=== PATIENT | male | born 1940 | race Caucasian/White ===

== ENCOUNTER → 2016-02-29 | Outpatient (CLI) | payer MEDICARE, OTHER | LOC: GMAJ 11:40 | PROVIDERS: ATTEND Family Medicine | DX: C61 Malignant neoplasm of prostate (principal) ==

== ENCOUNTER → 2016-04-17 | Outpatient (CLI) | payer MEDICARE, OTHER | END | disposition home or self-care (01) | LOC: GMAJ 10:37 | PROVIDERS: ATTEND Family Medicine | DX: C61 Malignant neoplasm of prostate (principal) ==

== ENCOUNTER → 2016-08-22 | Outpatient (CLI) | payer MEDICARE, OTHER | END | disposition home or self-care (01) | LOC: GMAJ 10:34 | PROVIDERS: ATTEND Family Medicine | DX: C61 Malignant neoplasm of prostate (principal) ==

== ENCOUNTER → 2016-12-07 | Outpatient (CLI) | payer MEDICARE, OTHER | END | disposition home or self-care (01) | LOC: GMAJ 10:26 | PROVIDERS: ATTEND Family Medicine | DX: R07.82 Intercostal pain (principal); R07.89 Other chest pain ==

== ENCOUNTER → 2017-01-09 | Outpatient (CLI) | payer MEDICARE, OTHER ==
--- NOTE | 2017-01-09 16:23 | NM ---
EXAM DESCRIPTION: Bone Scan, Whole Body CLINICAL HISTORY: 76-year-old, male, with history of prostate cancer. COMPARISON: Nuclear medicine bone scan dated November 11, 2015. TECHNIQUE: Following intravenous administration of 29 mCi technetium 99 M MDP, whole body scintigraphic imaging was performed. FINDINGS: Skull: Subtle new foci of increased radiotracer activity over the occipital calvarium at midline. This could represent suture line versus osteoblastic metastatic lesion. Spine: Interval increase in number and intensity of osteoblastic metastatic lesions within the thoracic and lumbar spine. Thorax: Interval increase in number and size of osteoblastic metastatic involvement of the ribs bilaterally as well as lower left sternum. Abdomen and pelvis: Interval increase in size of right iliac osteoblastic lesion. Redemonstration of similar-appearing osteoblastic lesion in the left iliac. There is a subtle new focus of increased osteoblastic uptake in the right sacrum. Physiologic radiotracer activity seen within the bilateral kidneys and urinary bladder. Extremities: Increased in intensity of osteoblastic lesion in the proximal left femur with subtle new focus of osteoblastic lesion in the proximal right femur. Redemonstration of increased uptake in the mid and distal right femur. Redemonstration of osteoblastic metastatic involvement of the distal right humerus Soft tissue: Normal distribution of radiopharmaceutical. IMPRESSION: Widespread metastatic disease with increase in number, size and/or intensity in the thoracic and lumbar spine as well as bilateral ribs, sternum, osseous pelvis, and left proximal femur relative to November medicine bone scan of November 11, 2015. Subtle new foci of increased radiotracer activity over the occipital calvarium at midline. This could represent suture line versus osteoblastic metastatic lesion. Osteoblastic metastatic involvement of the mid right femur and distal right humerus is similar in appearance. Electronically signed by: Oh Kimball MD 01/09/2017 4:22 PM [facility]
== END | disposition home or self-care (01) ==
LOC: NM 10:42
PROVIDERS: ATTEND Internal Medicine Hematology & Oncology
DX: C61 Malignant neoplasm of prostate (principal)

== ENCOUNTER 2018-03-10 05:16 | Day surgery (SDC) | payer MEDICARE, OTHER ==
[2018-03-10] MEDS ORDERED: PROPARACAINE 0.5% OPHTH SOL 15 ML BTTL ONE (11:10)
[2018-03-10] MEDS ORDERED: TROP 1%/CYCLOPEN 1%/PHENYL 2% DROPS ONE (11:11)
[2018-03-10] MEDS ORDERED: MIDAZOLAM INJ 2 MG/2 ML VIAL ONE (12:52)
[2018-03-10] MEDS ORDERED: LIDOCAINE 1% MPF 5 ML VIAL INJ ONE (13:03)
[2018-03-10] MEDS ORDERED: DEXAMETHASONE 0.1% OPHTH SOL 1 DROP RIGHT_EYE ONE ×2 (13:03→13:21)
[2018-03-10] MEDS ORDERED: TOBRAMYCIN SULF 0.3 % OPHT SOL 1 DROP RIGHT_EYE ONE ×2 (13:04→13:21)
[2018-03-10] MEDS ORDERED: BRIMONIDINE 0.2% OPHTH DROPS RIGHT_EYE ONE ×2 (13:04→13:21)
== END 2018-03-10 14:18 | disposition home or self-care (01) ==
LOC: AMB 05:16
PROVIDERS: ATTEND Ophthalmology
DX: H25.11 Age-related nuclear cataract, right eye (principal); I10 Essential (primary) hypertension; I25.10 Atherosclerotic heart disease of native coronary artery without angina pectoris; Z85.46 Personal history of malignant neoplasm of prostate; Z90.79 Acquired absence of other genital organ(s); Z79.82 Long term (current) use of aspirin; Z79.02 Long term (current) use of antithrombotics/antiplatelets; Z79.899 Other long term (current) drug therapy
CPT/HCPCS: 00142; 66984; J2250

== ENCOUNTER 2018-04-19 06:51 | Emergency (ER) | payer MEDICARE, OTHER ==
[2018-04-19] MEDS ORDERED: KETOROLAC TROMETHAMINE INJ 30 MG/ML VIAL IM ONE (07:49)
[2018-04-19] MEDS ORDERED: predniSONE 20 MG TAB PO ONE (07:49)
[2018-04-19] MEDS ORDERED: GABAPENTIN 300 MG CAP PO ONE (07:50)
--- NOTE | 2018-04-19 07:55 | ED.PDOC ---
History of Present Illness - General Chief Complaint: General Stated Complaint: Rt shoulder pain radiating down the arm Time Seen by Provider: 04/19/18 07:05 Source: patient Exam Limitations: no limitations - History of Present Illness Initial Comments: The patient is a very nice 78-year-old male presenting to the emergency room secondary to unremitting pain in his right shoulder also giving some neuropathic changes to the right upper extremity. No weakness but he does have some sensory decrease to the medial aspect of the right upper extremity. This has been progressive over the last couple of weeks. 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 He is seeing oncology and is planning on starting a new form of chemotherapy in a couple of weeks. He is on hydrocodone already but no other pain medications.the shoulder itself is not really tender to palpation. Movement does not make the pain any worse or better. Timing/Duration: 1 week Severity: moderate Improving Factors: nothing Worsening Factors: nothing Associated Symptoms: denies symptoms Allergies/Adverse Reactions: Allergies NO KNOWN ALLERGY Allergy (Verified 04/19/18 07:19) Home Medications: Ambulatory Orders Aspirin [Jm Low Dose] 81 mg PO DAILY 04/19/18 Clopidogrel Bisulfate [Plavix] 75 mg PO DAILY 04/19/18 Gabapentin 100 mg PO Q8HR #60 cap 04/19/18 HYDROcodone 5MG/APAP 325MG [[place] 5/325] 1 ea PO QID PRN 04/19/18 Lisinopril 10 mg PO DAILY 04/19/18 Metoprolol Succinate [Metoprolol Succinate ER] 50 mg PO DAILY 04/19/18 Nitroglycerin Patch 0.4 mg/Hr [Nitro-Dur PATCH 0.4 mg/hour] 0.4 mg TD DAILY 04/19/18 predniSONE [Prednisone] 40 mg PO DAILY #10 tab 04/19/18 Review of Systems - Review of Systems Constitutional: States: no symptoms reported EENTM: States: no symptoms reported Respiratory: States: no symptoms reported Cardiology: States: no symptoms reported Gastrointestinal/Abdominal: States: no symptoms reported Genitourinary: States: no symptoms reported Musculoskeletal: States: back pain, joint pain Skin: States: no symptoms reported Neurological: States: see HPI Endocrine: States: no symptoms reported All other Systems: No Change from Baseline Past Medical History (General) - Patient Medical History Hx Stroke: No Hx Cardiac Disorders: Yes Hx Congestive Heart Failure: No Hx Hypertension: Yes Hx Diabetes: No Hx Gastroesophageal Reflux: No - diverticulitis Hx Cancer: Yes - Skin, prostate and bone Surgical History: tonsillectomy, other - Vaccination History Hx Tetanus, Diphtheria Vaccination: - unknown Hx Influenza Vaccination: Yes Hx Pneumococcal Vaccination: Yes Immunizations Up to Date: Yes - Social History Hx Tobacco Use: No Hx Alcohol Use: No Hx Substance Use: No Hx Depression: No Family Medical History - Family History Father Living Status: Hx Cardiac Disease: Yes Hx Family Diabetes: Yes Physical Exam - Physical Exam General Appearance: Alert, Comfortable, No apparent distress Eye Exam: bilateral normal Ears, Nose, Throat: hearing grossly normal, normal ENT inspection Neck: full range of motion, supple Respiratory: no respiratory distress, no accessory muscle use Cardiovascular/Chest: normal peripheral pulses, regular rate, rhythm, no edema Peripheral Pulses: radial,right: 2+, radial,left: 2+ Gastrointestinal/Abdominal: soft Rectal Exam: deferred Back Exam: other - he does have some mild tenderness to palpation to the right side of the thoracic spine adjacent to T3-T7 No palpable mass. No step-off. No pain to palpation of the scapula or clavicle. No pain to palpation of the right upper extremity. 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 Skin Exam: normal color Comments: Vital Signs - 24 hr 04/19/18 07:12 Temperature 97.7 F Pulse Rate [ 82 Left Radial] Respiratory 18 Rate Blood Pressure 145/110 [Left Arm] O2 Sat by Pulse 95 Oximetry Progress - Progress Progress: 04/19/18 07:56 the patient is an 78-year-old male presenting to the emergency room secondary to pain to his right upper extremity with some decreased sensation that is most consistent with nerve impingement. Whether this is occurring at the shoulder or at the level of the cervical spine is not quite certain. He does have known metastases in both regions. He is already taking hydrocodone. He is given a dose of Toradol, prednisone and Neurontin here today. He is going to be placed on Neurontin 100 mg 3 times a day and he does need to be careful for drowsiness with this medication. He is also going to be placed on prednisone 40 mg daily for the next 5 days only. He needs to keep follow-up with his oncologist. Ultimately the pain medications will likely need to be ramped up but we do need to start somewhere. ER warnings were given. Keep follow-up with primary care doctor as well. Departure - Departure Clinical Impression: Neuropathic pain, Prostate cancer metastatic to bone Disposition: Discharge to Home or Self Care Condition: Fair Departure Forms: ED Discharge - Pt. Copy, Patient Portal Self Enrollment Instructions: Neuropathic Pain Diet: regular diet Activity: increase activity as tolerated Referrals: César Chery MD [Primary Care Provider] - 1-2 Weeks Prescriptions: Gabapentin 100 mg PO Q8HR #60 cap predniSONE [Prednisone] 40 mg PO DAILY #10 tab Home Medications: Ambulatory Orders Aspirin [Jm Low Dose] 81 mg PO DAILY 04/19/18 Clopidogrel Bisulfate [Plavix] 75 mg PO DAILY 04/19/18 Gabapentin 100 mg PO Q8HR #60 cap 04/19/18 HYDROcodone 5MG/APAP 325MG [[place] 5/325] 1 ea PO QID PRN 04/19/18 Lisinopril 10 mg PO DAILY 04/19/18 Metoprolol Succinate [Metoprolol Succinate ER] 50 mg PO DAILY 04/19/18 Nitroglycerin Patch 0.4 mg/Hr [Nitro-Dur PATCH 0.4 mg/hour] 0.4 mg TD DAILY 04/19/18 predniSONE [Prednisone] 40 mg PO DAILY #10 tab 04/19/18 Additional Instructions: the patient is an 78-year-old male presenting to the emergency room secondary to pain to his right upper extremity with some decreased sensation that is most consistent with nerve impingement. Whether this is occurring at the shoulder or at the level of the cervical spine is not quite certain. He does have known metastases in both regions. He is already taking hydrocodone. He is given a dose of Toradol, prednisone and Neurontin here today. He is going to be placed on Neurontin 100 mg 3 times a day and he does need to be careful for drowsiness with this medication. He is also going to be placed on prednisone 40 mg daily for the next 5 days only. He needs to keep follow-up with his oncologist. Ultimately the pain medications will likely need to be ramped up but we do need to start somewhere. ER warnings were given. Keep follow-up with primary care doctor as well.
[2018-04-19 08:41] VITALS: BP 158/77; TEMP 97.6; O2SAT 96
== END 2018-04-19 08:41 | disposition home or self-care (01) ==
LOC: ER 06:51
DX: M25.511 Pain in right shoulder (principal); C61 Malignant neoplasm of prostate; C79.51 Secondary malignant neoplasm of bone; I51.9 Heart disease, unspecified; I10 Essential (primary) hypertension; Z79.899 Other long term (current) drug therapy; Z85.828 Personal history of other malignant neoplasm of skin
CPT/HCPCS: J1885; J7512

== ENCOUNTER 2018-04-24 20:06 | Emergency (ER) | payer MEDICARE, OTHER ==
[2018-04-24 20:25] VITALS: TEMP 98.1
[2018-04-24] MEDS ORDERED: KETOROLAC TROMETHAMINE INJ 30 MG/ML VIAL IM ONE (20:39)
[2018-04-24] MEDS ORDERED: GABAPENTIN 300 MG CAP PO ONE (20:39)
--- NOTE | 2018-04-24 20:54 | ED.PDOC ---
History of Present Illness - General Chief Complaint: General Stated Complaint: pain related to bone cancer Time Seen by Provider: 04/24/18 20:26 Source: patient Exam Limitations: no limitations - History of Present Illness Initial Comments: the patient is an 78-year-old male presenting to emergency room secondary to recurrent and worsening right shoulder pain related most likely to metastatic disease. He is already on moderately high dose hydrocodone, low-dose gabapentin and he is finishing a course of prednisone. He did respond well last week to a bigger dose of gabapentin and a dose of Toradol. He is going to get another dose of that here today. No new symptoms otherwise. Hydrocodone will dose was increased by his primary care doctor 2 days ago. Timing/Duration: unsure Severity: moderate Improving Factors: nothing Worsening Factors: nothing Associated Symptoms: denies symptoms Allergies/Adverse Reactions: Allergies NO KNOWN ALLERGY Allergy (Verified 04/19/18 07:19) Home Medications: Ambulatory Orders Aspirin [Jm Low Dose] 81 mg PO DAILY 04/19/18 Clopidogrel Bisulfate [Plavix] 75 mg PO DAILY 04/19/18 Gabapentin 100 mg PO Q8HR #60 cap 04/19/18 HYDROcodone 5MG/APAP 325MG [[place] 5/325] 1 ea PO QID PRN 04/19/18 Lisinopril 10 mg PO DAILY 04/19/18 Metoprolol Succinate [Metoprolol Succinate ER] 50 mg PO DAILY 04/19/18 Nitroglycerin Patch 0.4 mg/Hr [Nitro-Dur PATCH 0.4 mg/hour] 0.4 mg TD DAILY 04/19/18 predniSONE [Prednisone] 40 mg PO DAILY #10 tab 04/19/18 Gabapentin [Neurontin] 300 mg PO Q8HR #60 cap 04/24/18 Indomethacin 50 mg PO Q8HR PRN #60 cap 04/24/18 Review of Systems - Review of Systems Constitutional: States: no symptoms reported EENTM: States: no symptoms reported Respiratory: States: no symptoms reported Cardiology: States: no symptoms reported Gastrointestinal/Abdominal: States: no symptoms reported Genitourinary: States: no symptoms reported Musculoskeletal: States: see HPI Skin: States: no symptoms reported Neurological: States: no symptoms reported Endocrine: States: no symptoms reported All other Systems: No Change from Baseline Past Medical History (General) - Patient Medical History Hx Stroke: No Hx Asthma: No Hx of COPD: No Hx Cardiac Disorders: Yes - partial blocakge Hx Congestive Heart Failure: No Hx Hypertension: Yes Hx Diabetes: No Hx Gastroesophageal Reflux: No - diverticulitis Hx Cancer: Yes - Skin, prostate and bone Surgical History: other - Vaccination History Hx Tetanus, Diphtheria Vaccination: - unknown Hx Influenza Vaccination: Yes Hx Pneumococcal Vaccination: Yes - Social History Hx Tobacco Use: No Hx Alcohol Use: No Hx Substance Use: No Hx Depression: No Family Medical History - Family History Father Living Status: Hx Cardiac Disease: Yes Hx Family Diabetes: Yes Physical Exam - Physical Exam General Appearance: Alert, Anxious, No apparent distress Eye Exam: bilateral normal Ears, Nose, Throat: hearing grossly normal, normal pharynx Neck: full range of motion, supple Respiratory: no respiratory distress, no accessory muscle use Cardiovascular/Chest: normal peripheral pulses, no edema, other - regular rate Peripheral Pulses: radial,right: 2+, radial,left: 2+ Gastrointestinal/Abdominal: non tender, soft Rectal Exam: deferred Extremity: normal range of motion, no pedal edema, normal capillary refill, other - the patient has deep pain in his right shoulder. He continues to have a area of decreased sensation to the medial aspect around the elbow. 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 As anticipated his pain medication doses are going to need to be increased. He is going to be written for gabapentin 300 mg 3 times daily. He is also going to be written for a trial of indomethacin. These medications do need to be taken with food to prevent stomach upset. Follow up with primary care doctor early next week. Keep follow-up with oncology. ER warnings were given. He was given a dose of higher dose gabapentin and a dose of Toradol here tonight. Departure - Departure Clinical Impression: Right shoulder pain Qualifiers: Chronicity: acute Qualified Code(s): M25.511 - Pain in right shoulder Disposition: Discharge to Home or Self Care Condition: Fair Departure Forms: ED Discharge - Pt. Copy, Patient Portal Self Enrollment Instructions: Shoulder Impingement (DC) Diet: regular diet Activity: increase activity as tolerated Referrals: César Chery MD [Primary Care Provider] - 1-2 Weeks Prescriptions: Gabapentin [Neurontin] 300 mg PO Q8HR #60 cap Indomethacin 50 mg PO Q8HR PRN #60 cap PRN Reason: Moderate Pain Home Medications: Ambulatory Orders Aspirin [Jm Low Dose] 81 mg PO DAILY 04/19/18 Clopidogrel Bisulfate [Plavix] 75 mg PO DAILY 04/19/18 Gabapentin 100 mg PO Q8HR #60 cap 04/19/18 HYDROcodone 5MG/APAP 325MG [[place] 5/325] 1 ea PO QID PRN 04/19/18 Lisinopril 10 mg PO DAILY 04/19/18 Metoprolol Succinate [Metoprolol Succinate ER] 50 mg PO DAILY 04/19/18 Nitroglycerin Patch 0.4 mg/Hr [Nitro-Dur PATCH 0.4 mg/hour] 0.4 mg TD DAILY 04/19/18 predniSONE [Prednisone] 40 mg PO DAILY #10 tab 04/19/18 Gabapentin [Neurontin] 300 mg PO Q8HR #60 cap 04/24/18 Indomethacin 50 mg PO Q8HR PRN #60 cap 04/24/18 Additional Instructions: the patient's an 78-year-old male presenting with recurrent right shoulder pain. As anticipated his pain medication doses are going to need to be increased. He is going to be written for gabapentin 300 mg 3 times daily. He is also going to be written for a trial of indomethacin. These medications do need to be taken with food to prevent stomach upset. Follow up with primary care doctor early next week. Keep follow-up with oncology. ER warnings were given. He was given a dose of higher dose gabapentin and a dose of Toradol here tonight.
[2018-04-24 21:05] VITALS: BP 157/84; O2SAT 95
== END 2018-04-24 21:05 | disposition home or self-care (01) ==
LOC: ER 20:06
DX: M25.511 Pain in right shoulder (principal); C44.90 Unspecified malignant neoplasm of skin, unspecified; C61 Malignant neoplasm of prostate; C41.9 Malignant neoplasm of bone and articular cartilage, unspecified; I51.9 Heart disease, unspecified; I10 Essential (primary) hypertension; Z79.899 Other long term (current) drug therapy; Z79.891 Long term (current) use of opiate analgesic; Z79.82 Long term (current) use of aspirin

== ENCOUNTER 2018-06-05 00:11 | Emergency (ER) | payer MEDICARE, OTHER ==
[2018-06-05] MEDS ORDERED: ASPIRIN TABLET 325 MG TAB PO ONE (00:35)
[2018-06-05] MEDS ORDERED: SODIUM CHLORIDE 0.9% (FLUSH) 10 ML SYG IV PRN (00:35)
[2018-06-05] MEDS ORDERED: ONDANSETRON INJ 4 MG/2 ML VIAL IV ONE (00:35)
[2018-06-05] MEDS ORDERED: MORPHINE SULFATE INJ 10 MG/ML VIAL IM ONE (00:36)
--- NOTE | 2018-06-05 00:37 | ED.PDOC ---
History of Present Illness - General Chief Complaint: Chest Pain/VA Stated Complaint: CP- pain bilateral arms Time Seen by Provider: 06/05/18 00:32 Source: patient - History of Present Illness Initial Comments: ACUTE ONSET OF CP, ONSET AT 2300 HRS. PRESSURE TYPE, SUBSTERNAL, 6/10 RADIATES TO BOTH SHOULDERS ASSOCIATED WITH SOB AND NAUSEA AND VOMIT. HE TOOK NTG SL X THREE AND THE PAIN WAS NOT IMPROVED. HE ELECTED TO COME TO THE ED. 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 HE ALSO VOICES THAT HE HAS CANCER OF THE PROSTATE WITH BONE METASTASIS AND IS UNDER THE CARE WITH A [facility] ONCOLOGIST. Timing/Duration: 1-3 hours Severity: moderate Location: substernal, central Prior Chest Pain/Cardiac Workup: angina, cardiac cath Nitro Today/Relief: 0.4 mg x 3 Aspirin Treatment Today: 81 mg x 1 Associated Symptoms: nausea/vomiting, shortness of breath Allergies/Adverse Reactions: Allergies NO KNOWN ALLERGY Allergy (Verified 06/05/18 00:30) Home Medications: Ambulatory Orders Aspirin [Jm Low Dose] 81 mg PO DAILY 04/19/18 Clopidogrel Bisulfate [Plavix] 75 mg PO DAILY 04/19/18 Lisinopril 10 mg PO DAILY 04/19/18 Metoprolol Succinate [Metoprolol Succinate ER] 50 mg PO DAILY 04/19/18 Nitroglycerin Patch 0.4 mg/Hr [Nitro-Dur PATCH 0.4 mg/hour] 0.4 mg TD DAILY 04/19/18 Gabapentin [Neurontin] 300 mg PO Q8HR #60 cap 04/24/18 Ondansetron Odt [Zofran ODT] 8 mg PO Q8HRS PRN 06/05/18 Prochlorperazine Tab [Compazine Tab] 10 mg PO Q6HRS PRN 06/05/18 predniSONE [Prednisone] 5 mg PO BID 06/05/18 Review of Systems - Review of Systems Constitutional: States: no symptoms reported EENTM: States: no symptoms reported Respiratory: States: no symptoms reported Cardiology: States: chest pain Gastrointestinal/Abdominal: States: nausea, vomiting Genitourinary: States: no symptoms reported Musculoskeletal: States: no symptoms reported, gout Neurological: States: no symptoms reported Endocrine: States: no symptoms reported Hematologic/Lymphatic: States: no symptoms reported Past Medical History (General) - Patient Medical History Hx Seizures: No Hx Stroke: No Hx Dementia: No Hx Asthma: No Hx of COPD: No Hx Cardiac Disorders: Yes - partial blocakge Hx Congestive Heart Failure: No Hx Pacemaker: No Hx Hypertension: Yes Hx Thyroid Disease: No Hx Diabetes: No Hx Gastroesophageal Reflux: No - diverticulitis Hx Renal Disease: No Hx Cancer: Yes - Skin, prostate and bone Hx of HIV: No Hx Hepatitis C: No Hx MRSA: No Surgical History: cancer surgery - Vaccination History Hx Tetanus, Diphtheria Vaccination: - unknown Hx Influenza Vaccination: Yes Hx Pneumococcal Vaccination: Yes - Social History Hx Tobacco Use: No Hx Alcohol Use: No Hx Substance Use: No Hx Depression: No Family Medical History - Family History Father Living Status: Hx Cardiac Disease: Yes Hx Family Diabetes: Yes Physical Exam - Physical Exam General Appearance: Alert, Well Developed, Other - MODERATE DISTRESS Eyes, Ears, Nose, Throat Exam: PERRL/EOMI, normal ENT inspection Neck: non-tender, full range of motion, supple, normal inspection Respiratory: chest non-tender, lungs clear, normal breath sounds, no respiratory distress, no accessory muscle use Cardiovascular/Chest: normal peripheral pulses, regular rate, rhythm, no edema, no gallop, no JVD, no murmur Gastrointestinal/Abdominal: normal bowel sounds, non tender, soft, no organomegaly, no pulsatile mass Rectal Exam: deferred Extremity: normal range of motion 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 MULTIPLE METATSTAIC BONE LESIONS. EKG: HR OF 74, VA INTERVAL OF 156, QRS OF 92, QTC OF 426, AXES OF -9 DEGREES. IMPRESSION: SINUS RHYTHM, ST SEGMENT DEPRESSION ON THE ANTERIOR LEADS V2-V4 SUGGESTIVE OF A NON-TRANSMURAL VA. THISE TRACING IS COMPARED TO ONE DATED 01/08/2015. AT THAT TIME HE WAS ON A SINUS RHYTHM AT A RATE OF 71. THERE WAS NO EVIDENCE OF ISCHEMIA. 06/05/18 01:19 - Results/Orders Results/Orders: 06/05/18 00:35 IV Care:Saline Lock per Protoc QSHIFT Telemetry .ONCE B-TYPE NATRIURETIC PEPTIDE/BNP Stat CARDIAC PANEL,ER Stat DIFFERENTIAL,MANUAL BY FLAGS Stat Sodium Chloride 0.9% (Flush) [Saline Flush Syringe] 10 ml IV PRN PRN EKG Stat Pulse Ox Stat 06/05/18 01:00 Nitroglycerin/D5w IV 50,000 mcg Premix Bottle 1 bottle IVS PRN Laboratory Results WBC 1.5 K/mm3 (4.8-10.8) L* 06/05/18 00:35 RBC 3.65 M/mm3 (4.70-6.10) L 06/05/18 00:35 Hgb 11.6 gm/dL (14.0-18.0) L 06/05/18 00:35 Hct 34.6 % (42.0-52.0) L 06/05/18 00:35 MCV 94.7 fl (80.0-94.0) H 06/05/18 00:35 MCH 31.7 pg (27.0-31.0) H 06/05/18 00:35 MCHC 33.5 g/dL (33.0-37.0) 06/05/18 00:35 RDW 14.1 % (11.5-14.5) 06/05/18 00:35 Plt Count 279 K/mm3 (130-400) 06/05/18 00:35 MPV 8.1 fl (7.40-10.4) 06/05/18 00:35 Absolute Neuts (auto) Not Reportable 06/05/18 00:35 Absolute Lymphs (auto) Not Reportable 06/05/18 00:35 Absolute Monos (auto) Not Reportable 06/05/18 00:35 Absolute Eos (auto) Not Reportable 06/05/18 00:35 Neutrophils % Not Reportable 06/05/18 00:35 Lymphocytes % Not Reportable 06/05/18 00:35 Monocytes % Not Reportable 06/05/18 00:35 Eosinophils % Not Reportable 06/05/18 00:35 Basophils % Not Reportable 06/05/18 00:35 Sodium 133 mmol/L (135-145) L 06/05/18 00:35 Potassium 3.8 mmol/L (3.6-5.0) 06/05/18 00:35 Chloride 100 mmol/L (101-111) L 06/05/18 00:35 Carbon Dioxide 22 mmol/L (21-31) 06/05/18 00:35 Anion Gap 14.8 (12-18) 06/05/18 00:35 BUN 17 mg/dL (7-18) 06/05/18 00:35 Creatinine 1.16 mg/dL (0.6-1.3) 06/05/18 00:35 BUN/Creatinine Ratio 14.7 (10-20) 06/05/18 00:35 Random Glucose 126 mg/dL (70-105) H 06/05/18 00:35 Serum Osmolality 269.5 mOsm/L (275-295) L 06/05/18 00:35 Calcium 8.0 mg/dL (8.4-10.2) L 06/05/18 00:35 Magnesium 2.1 mg/dL (1.8-2.5) 06/05/18 00:35 Creatine Kinase 39 IU/L (38-174) 06/05/18 00:35 CK-MB (CK-2) 2.1 ng/mL (0.0-4.4) 06/05/18 00:35 Troponin I 1.16 ng/mL (0.01-0.05) H* 06/05/18 00:35 Departure - Departure Clinical Impression: Subendocardial infarction, Prostate CA Time of Disposition: 01:48 Disposition: Transfer to Hospital Condition: Serious Referrals: César Chery MD [Primary Care Provider] - 1-2 Weeks Home Medications: Ambulatory Orders Aspirin [Jm Low Dose] 81 mg PO DAILY 04/19/18 Clopidogrel Bisulfate [Plavix] 75 mg PO DAILY 04/19/18 Lisinopril 10 mg PO DAILY 04/19/18 Metoprolol Succinate [Metoprolol Succinate ER] 50 mg PO DAILY 04/19/18 Nitroglycerin Patch 0.4 mg/Hr [Nitro-Dur PATCH 0.4 mg/hour] 0.4 mg TD DAILY 04/19/18 Gabapentin [Neurontin] 300 mg PO Q8HR #60 cap 04/24/18 Ondansetron Odt [Zofran ODT] 8 mg PO Q8HRS PRN 06/05/18 Prochlorperazine Tab [Compazine Tab] 10 mg PO Q6HRS PRN 06/05/18 predniSONE [Prednisone] 5 mg PO BID 06/05/18 Critical Care Note - Critical Care Note Total Time (mins): 35 Comments: CRITICAL EVENT: CHEST PAIN CRITICAL FINDINGS: SUBENDOCARDIAL INFARCTION CRITICAL ACTIONS: IV NITRATES, IV HEPARIN, IV ANALGESIA, TRANSFER TO A HIGHER LEVEL OF CARE, ELEVATED TROP I CRITICAL TIME: 35 MINUTES SYSTEMS AT RISK: CARDIOVASCULAR Decision To Admit - Decistion To Admit Decision to Admit Date: 06/05/18 Decision to Admit Time: 01:45 - THE PATIENT WILL BE TRANSFERRED TO [facility] Transfer to Outside Facility - Transfer Information Accepting Provider:: CLAUDINE OAKLEY MD Accepting Facility: [facility] Reason for Transfer: required specialist not available
[2018-06-05] MEDS ORDERED: MORPHINE SULFATE INJ 10 MG/ML VIAL IV ONE ×2 (00:42→01:46)
[2018-06-05] MEDS ORDERED: HEPARIN PREMIX 25,000 UNITS in PREMIX BAG 1 BAG IVS SCH (00:45)
--- NOTE | 2018-06-05 00:47 | RAD ---
EXAM: XR Chest, 1 View CLINICAL HISTORY: The patient is 78 years old and is Male; chest pain TECHNIQUE: Frontal view of the chest. COMPARISON: No relevant prior studies available. FINDINGS: LUNGS: The lungs are hyperinflated. Subtle areas of nodular appearing opacity are scattered throughout the lungs. PLEURAL SPACE: Unremarkable. No pneumothorax. HEART: Unremarkable. No cardiomegaly. MEDIASTINUM: Unremarkable. BONES/JOINTS: The bones are sclerotic with several sclerotic foci. IMPRESSION: 1. Hyperinflated lungs with questionable subtle nodular opacities which may be secondary to metastatic disease. 2. Extensive metastatic disease throughout the bones. Electronically signed by: Gladys Arriaza MD 06/05/2018 12:43 AM CDT
[2018-06-05] MEDS ORDERED: NITROGLYCERIN/D5W IV 50,000 MCG in PREMIX BOTTLE 1 BOTTLE IVS SCH (01:00)
[2018-06-05 01:37] VITALS: O2SAT 97
[2018-06-05] MEDS ORDERED: HEPARIN PREMIX 25,000 UNITS in PREMIX BAG 1 BAG IVS ONE (01:53)
[2018-06-05] MEDS ORDERED: HEPARIN PREMIX 500 ML ONE (01:53)
[2018-06-05 02:20] VITALS: BP 130/76; TEMP 98.6
== END 2018-06-05 02:36 | disposition short-term general hospital (02) ==
LOC: ER 00:11
DX: I21.4 Non-ST elevation (NSTEMI) myocardial infarction (principal); C61 Malignant neoplasm of prostate; C79.51 Secondary malignant neoplasm of bone; R11.2 Nausea with vomiting, unspecified; I51.9 Heart disease, unspecified; I10 Essential (primary) hypertension; Z85.828 Personal history of other malignant neoplasm of skin; Z79.82 Long term (current) use of aspirin; Z79.899 Other long term (current) drug therapy
CPT/HCPCS: 71045; 80048; 82550; 82553; 83880; 84484; 85025; 85610; 85730; 93005; 94760; J1644; J2270; J2405